=== PATIENT | female | born 1995 | race Two or more races ===

== ENCOUNTER 2017-07-04 20:28 | Emergency (ER) | payer MEDICAID ==
[~2017-07-04] VITALS: Ht 170.2 cm; Wt 63.0 kg
[2017-07-05 02:58] VITALS: BP 112/65
[2017-07-05] MEDS ORDERED: IBUPROFEN 600MG TABLET PO ONE (03:00)
== END 2017-07-05 03:03 | disposition home or self-care (01) ==
LOC: ER 20:28
DX: M25.512 Pain in left shoulder (principal)
CPT/HCPCS: 73030; 81025; 99284; Z7610